=== PATIENT | male | born 1985 | race Caucasian/White ===

== ENCOUNTER 2019-07-13 18:26 | Inpatient (IN) | payer OTHER ==
[~2019-07-13] VITALS: Ht 167.6 cm; Wt 88.5 kg
[~2019-07-13 18:26] MED LIST: BUPROPION XL150 MG PO; CATAPRES PO; LORazepam 1MG TAB PO; MAG-OXIDE400 MG PO; MICRO K PO; PERCOCET 10-3251 TAB PO; Temazepam PO
--- NOTE | 2019-07-13 19:51 | NUR ---
PTE REFIERE ULCERA EN LA PLANTA DEL PIE SE BERNA S/V YSE UBIACE N AREA DE OBSERVACION
--- NOTE | 2019-07-13 22:58 | NUR ---
SE EDUCA A PTE SOBRE [place] MEDICO JAYA REFIERE ENTENDER. SE BERNA MUESTRAS DE LAB UTILIZANDO MEDIDAS ASEPTICAS. SE REALIZA CULTIVO DE HORIDA DE PIE DERECHO. SE COLOCA H/L A PTE EL CUAL SE ENCUENTRA PATENTE FRANCES DE EDEMA Y ENROJECIMIENTO. PTE CON ORDENES DE ADMISION PENDIENTE. PTE SE CONTINUA MONITORIANDO POR CAMBIOS.
== END 2019-07-22 18:55 | disposition home or self-care (01) | DRG 603 ==
LOC: ER 18:26 → SURG 20:52 → SURH 20:52 → SEC-K 20:52 → SURG 22:16 → SURH 07-14 21:27
PROVIDERS: ADMIT Student in an Organized Health Care Education/Training Program
PROC: 8E0ZXY6 Isolation (ICD-10-PCS; principal; 2019-07-14)
DX: L03.115 Cellulitis of right lower limb (principal); L97.415 Non-pressure chronic ulcer of right heel and midfoot with muscle involvement without evidence of necrosis; B35.8 Other dermatophytoses; B96.5 Pseudomonas (aeruginosa) (mallei) (pseudomallei) as the cause of diseases classified elsewhere; B95.1 Streptococcus, group B, as the cause of diseases classified elsewhere; B96.6 Bacteroides fragilis [B. fragilis] as the cause of diseases classified elsewhere

== ENCOUNTER 2022-04-08 12:40 | Emergency (ER) | payer OTHER ==
[~2022-04-08] VITALS: Ht 78.7 cm; Wt 101.2 kg
[2022-04-08] MEDS ORDERED: TOPROL XL25 M1 PO (13:00)
[2022-04-08] MEDS ORDERED: ECOTRIN81 MG PO (13:00)
== END 2022-04-09 10:27 | disposition home or self-care (01) ==
LOC: ER 12:40
DX: B35.8 Other dermatophytoses (principal); L97.519 Non-pressure chronic ulcer of other part of right foot with unspecified severity